=== PATIENT | female | born 1945 | race Caucasian/White ===

== ENCOUNTER 2016-05-24 13:41 | Emergency (ER) | payer MEDICARE, OTHER ==
--- NOTE | 2016-06-01 15:21 | ER ---
ADMIT: 05/24/2016 RM/LOC: ER [facility] MR#: [id number] [address] [place], [place] [id number] NINA QUACH [address] [place] [address] Emergency Room Report SEX: F AGE: 70 : 1945 DATE: 05/24/2016 ADDENDUM: A 70-year-old female with dementia, comes in with some report of possible chest pain. I cannot establish an accurate time frame or even a good description of the chest pain due to her dementia. I did go ahead and get a set of cardiac enzymes which were normal, and EKG which showed nothing acute and a chest x-ray was normal. is the primary historian, but is also having some difficulty providing me accurate history. He states her blood pressure was high yesterday afternoon and she has been off her lisinopril for a while. She is still taking her clonidine as prescribed. Her blood pressure was 173/86 on triage here. Rest of her vital signs were unremarkable. We did check a creatinine which was 2.2, which I think is slightly above her baseline. I discussed this with Dr. Llamas, and we will be discharging the patient home to begin taking Norvasc, and she is to drink plenty of water, and to follow up at Dr. Llamas's office on Friday. has been given instructions that if she is having any concerning symptoms, they can return to the Emergency Department. Discharged home in stable condition. DIAGNOSES: 1. Dementia. 2. Renal insufficiency. Arturo Nichole MD/ kristina JOB #: [id number] CC: Arturo Nichole MD, Attending Physician
== END 2016-05-24 16:40 | disposition home or self-care (01) ==
LOC: ER 13:41
DX: F03.90 Unspecified dementia, unspecified severity, without behavioral disturbance, psychotic disturbance, mood disturbance, and anxiety (principal); N28.9 Disorder of kidney and ureter, unspecified; E11.9 Type 2 diabetes mellitus without complications; E78.5 Hyperlipidemia, unspecified; Z88.0 Allergy status to penicillin; Z79.4 Long term (current) use of insulin; Z79.899 Other long term (current) drug therapy